=== PATIENT | male | born 1995 | race African-American/Black ===

== ENCOUNTER 2016-11-25 06:14 | Day surgery (SDC) | payer MEDICARE, OTHER ==
[2016-11-20 18:37] VITALS: BMI 24.4
[~2016-11-25 06:14] MED LIST: LIDOCAINE 1%/EPI 1:100000 (50 ML MULTI DOSE VIAL) INF ONE; ceFAZolin SODIUM 1 GM VIAL IVPB ONE
[2016-11-25] MEDS ORDERED: BACITRACIN 30 GM TUBE TOPICAL OINTMENT ONE (07:19)
[2016-11-25] MEDS ORDERED: LIDOCAINE 1%/EPI 1:100000 (50 ML MULTI DOSE VIAL) ONE (07:19)
[2016-11-25] MEDS ORDERED: ceFAZolin SODIUM 1 GM VIAL ONE (07:22)
[2016-11-25] MEDS ORDERED: KETOROLAC TROMETHAMINE 30 MG/1 ML VIAL ONE (07:22)
[2016-11-25] MEDS ORDERED: SODIUM CHLORIDE 0.9% P/F 10 ML VIAL IJ ONE (07:22)
[2016-11-25] MEDS ORDERED: DEXAMETHASONE SOD PHOSPHATE 4 MG/1 ML VIAL ONE (07:22)
[2016-11-25] MEDS ORDERED: MIDAZOLAM HCL 2 MG/2 ML SINGLE DOSE VIAL ONE (07:23)
[2016-11-25] MEDS ORDERED: PROPOFOL 20 ML ONE ×2 (07:23)
[2016-11-25] MEDS ORDERED: ePHEDrine SULFATE 50 MG/1 ML AMPULE ONE (07:31)
[2016-11-25] MEDS ORDERED: SEVOFLURANE 250 ML BTL ONE (07:51)
--- NOTE | 2016-11-25 08:08 | HP ---
History & Physical Update - History History: Change (see notes) (Recurrent/newly formed sebaceous cysts of the anterior/sternal chest wall) - Physical Physical: No Change - Assessment Assessment: No Change - Plan Plan: No Change
[2016-11-25] MEDS ORDERED: ceFAZolin SODIUM 1 GM VIAL IVPB ONE (08:21)
[2016-11-25] MEDS ORDERED: BUPIVACAINE HCL/PF 0.5% (5MG/ML) 10 ML VIAL IJ ONE (08:32)
[2016-11-25] MEDS ORDERED: oxyCODONE HCL 5 MG TABLET PO PRN (09:18)
[2016-11-25] MEDS ORDERED: ONDANSETRON 4 MG/2 ML VIAL IVPUSH PRN (09:18)
[2016-11-25] MEDS ORDERED: LACTATED RINGERS SOLUTION 1,000 ML IV SCH (09:30)
[2016-11-25 10:13] VITALS: TEMP 98.6
[2016-11-25 10:53] VITALS: BP 110/67; PULSE 72
--- NOTE | 2016-11-26 11:17 | OP ---
DATE OF OPERATION: 11/25/2016 PROCEDURE: Excision of anterior chest wall sebaceous cysts (3). PREOPERATIVE DIAGNOSIS: Anterior chest wall sebaceous cysts (3). POSTOPERATIVE DIAGNOSIS: Anterior chest wall sebaceous cysts (3). SURGEON: Nnamdi Dubose MD ANESTHESIA: General by laryngeal mask airway. FINDINGS ON PROCEDURE: This is a 21-year-old male who presents with recurrent sebaceous cysts of the anterior chest wall at the distal half of the sternum. Patient had previous excision of multiple sebaceous cysts at the same area. On physical examination, patient had three 1-cm sebaceous cysts at the distal half of the sternum up to the area below the subxiphoid process. The patient was advised removal of the cysts, and consent was obtained from the father after discussing the risks, benefits, and alternatives of the procedure. DESCRIPTION OF PROCEDURE: Patient was brought to the operating room and placed in supine position. General anesthesia by laryngeal mask airway was administered. The operative site was prepped and draped in the usual sterile fashion. Using 0.5% Marcaine local anesthesia was administered to the proposed incision sites for postoperative analgesia. The upper most cyst was addressed first by making a 1-cm elliptical incision over the cyst using scalpel blade No. 15. Further dissection using iris scissors was done until the cyst together with the ellipse of skin was completely excised. The wound was undermined about 0.5 cm on each side and closed with interrupted Biosyn 4-0 sutures for the dermis and skin apposition with Steri-Strips. The other 2 cysts were also excised in the same manner. The wounds were covered with sterile dressing. The patient was successfully extubated and transferred to the post-anesthesia care unit in satisfactory condition. ESTIMATED BLOOD LOSS: About 1 mL. WOUND CLASS: Clean. The patient received 1 g of Ancef prior to the start of the procedure. Jose Luis [id number]
--- NOTE | 2016-11-26 13:30 | PATH ---
Surgical Pathology Report Patient Name: JULIA JENKINS [facility]. Rec. #: [id number] /Age/Gender: 1995 (Age: 21) / M Account: [id number] Location: U SURGICAL Taken: 11/25/2016 Received: 11/25/2016 Reported: 11/26/2016 Physicians: Nnamdi Dubose M.D. Specimen(s) Received SEBACEOUS CYST ANTERIOR CHEST WALL Clinical History Sebaceous cyst anterior chest wall Final Diagnosis SEBACEOUS CYSTS, ANTERIOR CHEST WALL, EXCISION: EPIDERMAL INCLUSION CYST x3. Electronically Signed Yang Dotson M.D. Gross Description Received in formalin, labeled "sebaceous cysts anterior chest wall" are 3 palmer, intact cysts ranging from 0.4-0.7 cm in greatest dimension. Each cyst is partially surfaced by palmer, unremarkable skin. The cyst lumens containing palmer sebaceous material. A open claims representative section of each cyst is submitted in one cassette. 11/25/201611/25/2016
== END 2016-11-25 10:54 | disposition home or self-care (01) ==
LOC: JASU-SURG 06:14
PROVIDERS: ATTEND Surgery
PROC: 0HB5XZZ Excision of Chest Skin, External Approach (ICD-10-PCS; principal; 2016-11-25 08:00)
DX: L72.3 Sebaceous cyst (principal)
CPT/HCPCS: 88304-TC; 94760

== ENCOUNTER 2018-10-21 10:38 | Emergency (ER) | payer MEDICARE, OTHER ==
[2018-10-21 10:48] VITALS: BP 112/63; PULSE 75; TEMP 98.3; BMI 20.5
--- NOTE | 2018-10-21 10:48 | PDOC ---
History of Present Illness - General Chief Complaint: Hematuria Stated Complaint: ABD PAIN Time Seen by Provider: 10/21/18 10:47 - History of Present Illness Initial Comments: 10/21/18 11:00 Mr. Ramsey is a 23 yo male w/ pmh of asthma, igov-obzrm-vicvnay disease, lowe's syndrome, scoliosis, chronic renal disease, CKD, who presents for evaluation of abdominal pain and hematuria. Mother reports he recently had unknown urinary procedure with Dr. Genevieve Abarca. Patient was evaluated by Dr. Ivy yesterday who requested CBC and CT abd/pelvis for evaluation of continued bleeding following procedure as well as abdominal pain. Mother reports she presented given Mello's continued generalized pain. Past History - Past Medical History Allergies/Adverse Reactions: Allergies Allergy/AdvReac Type Severity Reaction Status Date / Time amoxicillin [Amoxicillin] Allergy Intermediate Hives Verified 11/28/12 16:10 No Known Drug Allergies Allergy Verified 10/21/18 10:44 Home Medications: Ambulatory Orders Risperidone 1 mg PO DAILY 10/21/18 - Immunization History Immunization Up to Date: Yes - Suicide/Smoking/Psychosocial Hx Smoking Status: No Smoking History: Never smoked Have you smoked in the past 12 months: No Number of Cigarettes Smoked Daily: 0 Hx Alcohol Use: No Drug/Substance Use Hx: No Substance Use Type: None Review of Systems - Review of Systems Comments:: 10/21/18 11:04 Unable to obtain further *Physical Exam - Physical Exam Comments: 10/21/18 11:04 GENERAL: Awake, alert, and fully oriented, in no acute distress HEAD: No signs of trauma, normocephalic, atraumatic EYES: PERRLA, EOMI, sclera anicteric, conjunctiva clear ENT: Auricles normal inspection, hearing grossly normal, nares patent, oropharynx clear without exudates. Moist mucosa NECK: Normal ROM, supple, no lymphadenopathy, JVD, or masses LUNGS: No distress, speaks full sentences, clear to auscultation bilaterally HEART: Regular rate and rhythm, normal S1 and S2, no murmurs, rubs or gallops, peripheral pulses normal and equal bilaterally. ABDOMEN: +Epigastric TTP. Soft, normoactive bowel sounds. No guarding, no rebound. No masses EXTREMITIES: Normal inspection, Normal range of motion, no edema. No clubbing or cyanosis. NEUROLOGICAL: Cranial nerves II through XII grossly intact. Normal speech, no focal sensorimotor deficits SKIN: Warm, Dry, normal turgor, no rashes or lesions noted. UROLOGICAL: No testicular TTP, no deformity, no abnormal findings. ED Treatment Course - LABORATORY CBC & Chemistry Diagram: 10/21/18 11:49 10/21/18 11:49 Medical Decision Making - Medical Decision Making 10/21/18 11:19 Mr. Ramsey is a 23 yo male w/ pmh as described who presents for evaluation of hematuria with abdominal pain. Discussed patient with Urologist who reports patient was seen October 01 for cystoscopy with prostate resection; catheter removed oct 04. Blood expected in urine for 1-2 months following and urologist will evaluate in office in 1 week assuming no additional clinical findings. 10/21/18 14:01 Patient evaluated with labs as below as well as CT abdomen without acute findings (Non-obstructing kidney stones only). Discussed patient with GI who believes patient requires urology follow-up as directed above only without other intervention. No concern for acute process at this time. Discharging to home. Laboratory Results - last 24 hr 10/21/18 10/21/18 10/21/18 11:49 11:49 12:51 WBC 3.1 L RBC 4.16 Hgb 10.0 L Hct 30.5 L D MCV 73.3 L MCH 24.1 L MCHC 32.8 RDW 18.4 H Plt Count 158 MPV 8.9 Absolute Neuts (auto) 1.9 Neutrophils % 59.6 D Lymphocytes % 30.6 D Monocytes % 7.3 Eosinophils % 1.7 Basophils % 0.8 Nucleated RBC % 0 Sodium 139 Potassium 3.5 Chloride 104 Carbon Dioxide 25 Anion Gap 9 BUN 20 H Creatinine 1.6 H Creat Clearance w eGFR 53.83 Random Glucose 88 Calcium 9.4 Total Bilirubin 0.4 AST 43 H ALT 29 Alkaline Phosphatase 166 H Total Protein 8.3 H Albumin 4.4 Urine Color [place] Urine Appearance Turbid Urine pH 8.5 H D Ur Specific [place] 1.020 Urine Protein 3+ H Urine Glucose (UA) Negative Urine Ketones Negative Urine Blood 3+ H Urine Nitrite Negative Urine Bilirubin Negative Urine Urobilinogen 0.2 Ur Leukocyte Esterase Negative *DC/Admit/Observation/Transfer Diagnosis at time of Disposition: Hematuria Qualifiers: Hematuria type: unspecified type Qualified Code(s): R31.9 - Hematuria, unspecified - Discharge Dispostion Disposition: HOME - Referrals Referrals: Safia Isabel MD [Staff Physician] - - Patient Instructions Printed Discharge Instructions: DI for Hematuria Additional Instructions: Mello was evaluated today in the ER for his blood in urine. We evaluated him with labs as well as urine analysis and abdominal CT. No concerning findings were found at this time. He should follow-up with his urologist next week as discussed. 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 Return to ER if any fever, chills, change in urination, or other concerning symptoms. - Post Discharge Activity
--- NOTE | 2018-10-21 11:07 | PDOC ---
Attending Attestation - Resident Resident Name: Eliecer Galvez - ED Attending Attestation I have performed the following: I have examined & evaluated the patient, The case was reviewed & discussed with the resident, I agree w/resident's findings & plan, Exceptions are as noted - HPI HPI: 10/21/18 14:02 23 yo M who presents to the ER with mother and father due to hematuria Pt has a h/o Lowe's syndrome, h/o multiple abdominal hernia repairs, h/o ruptured appendicitis Pt s/p cystoscopy on 10/01 for urinary retention Since that time, he has had hematuria He had complained about abdominal pain since his surgery Was seen by Dr Hidalgo yesterday and mother was told to come to the ER Pt awoke this morning and was noted to have abdominal pain Pt has not been vomiting No fevers or chills 10/21/18 14:28 - Physicial Exam PE: 10/21/18 14:32 On examination: Pleasant patient Awake and alert Answers my questions RRR CTA Abd is not distended, not tender to palpation No masses felt No guarding No rebound - Medical Decision Making 10/21/18 14:02 Laboratory Tests 10/21/18 10/21/18 10/21/18 11:49 11:49 12:51 WBC 3.1 L Hgb 10.0 L Hct 30.5 L D Plt Count 158 BUN 20 H Creatinine 1.6 H Urine Blood 3+ H Urine Nitrite Negative Ur Leukocyte Esterase Negative Pt able to void in the ER 10/21/18 14:32 CT demonstrates - no acute pathology call placed to dr hidalgo - he states patient can be discharged Call placed to dr roca - pt can be see next week I have discussed with mother the importance of following up in 1 week monitor for abdominal distention, inability to void This should prompt a return visit to the ER Monitor for fevers or chills
[2018-10-21 11:59] LABS: BASO % 0.8 % (0-2.0); EOS % 1.7 % (0-4.5); HEMATOCRIT 30.5 % (35.4-49); LYMPH % 30.6 % (8-40); MCH 24.1 pg (25.7-33.7); MCHC 32.8 g/dl (32.0-35.9); MEAN CELL VOLUME 73.3 fl (80-96); MEAN PLT VOLUME 8.9 fl (7.5-11.1); MONO % 7.3 % (3.8-10.2); NEUT % 59.6 % (42.8-82.8); PLATELET COUNT 158 K/MM3 (134-434); RBC 4.16 M/mm3 (4.00-5.60); RDW 18.4 % (11.9-15.9); WHITE BLOOD COUNT 3.1 K/mm3 (4.0-10.0)
[2018-10-21 12:32] LABS: ALBUMIN 4.4 g/dl (3.4-5.0); ALK PHOS 166 U/L (45-117); ANION GAP 9 MMOL/L (8-16); BILIRUBIN,TOTAL 0.4 mg/dL (0.2-1); BLOOD UREA NITROGEN 20 mg/dL (7-18); CALCIUM 9.4 mg/dL (8.5-10.1); CHLORIDE 104 mmol/L (98-107); CO2 25 mmol/L (21-32); CREATININE 1.6 mg/dL (0.55-1.3); GLUCOSE,RANDOM 88 mg/dL (74-106); POTASSIUM 3.5 mmol/L (3.5-5.1); SGOT/AST 43 U/L (15-37); SGPT/ALT 29 U/L (13-61); SODIUM 139 mmol/L (136-145); TOT PROT 8.3 g/dl (6.4-8.2)
[2018-10-21 13:02] LABS: PH,URINE 8.5 (5.0-8.0); URINE APPEARANCE Turbid; URINE BILIRUBIN Negative (<2.0 mg/dL); URINE COLOR Pink; URINE GLUCOSE (UA) Negative (NEGATIVE); URINE KETONE Negative (NEGATIVE); URINE LEUK ESTERASE Negative (NEGATIVE); URINE NITRITE Negative (NEGATIVE); URINE PROTEIN 3+ (NEGATIVE); URINE UROBILINOGEN 0.2 mg/dL (0.2-1.0)
== END 2018-10-21 14:41 | disposition home or self-care (01) ==
LOC: JER 10:38
DX: R31.9 Hematuria, unspecified (principal); J45.909 Unspecified asthma, uncomplicated; M91.10 Juvenile osteochondrosis of head of femur [Legg-Calve-Perthes], unspecified leg; E72.03 Lowe's syndrome; M41.9 Scoliosis, unspecified; N18.9 Chronic kidney disease, unspecified
CPT/HCPCS: 36415; 74176-TC; 80053; 81003; 81015; 85025; 87086; 99281-25

== ENCOUNTER 2018-11-04 16:04 | Emergency (ER) | payer MEDICARE, OTHER ==
[2018-11-04 16:19] VITALS: BMI 27.5
--- NOTE | 2018-11-04 16:23 | PDOC ---
Rapid Medical Evaluation Chief Complaint: Hematuria Time Seen by Provider: 11/04/18 16:19 Medical Evaluation: Allergies Allergy/AdvReac Type Severity Reaction Status Date / Time amoxicillin [Amoxicillin] Allergy Intermediate Hives Verified 11/28/12 16:10 No Known Drug Allergies Allergy Verified 10/21/18 10:44 Vital Signs Temp Pulse Resp BP Pulse Ox 98.7 F 98 H 16 94/59 L 97 11/04/18 16:14 11/04/18 16:14 11/04/18 16:14 11/04/18 16:14 11/04/18 16:14 11/04/18 16:20 I have performed a brief in-person evaluation of this patient. The patient presents with a chief complaint of: h/o lowes syndrome, spleenomegaly and urinary retention sent in by PCP Dr. Abarca for admission for gross hematuria and refusing gambino placement in office today Pertinent physical exam findings: A&O x 3 I have ordered the following: CBC, CMP, PT/PTT/ T&S. IV insert The patient will proceed to the ED for further evaluation. 11/04/18 16:20 Discharge Disposition - Diagnosis Hematuria Qualifiers: Hematuria type: unspecified type Qualified Code(s): R31.9 - Hematuria, unspecified - Discharge Dispostion Condition at time of disposition: Stable - Referrals Referrals: Yunier Abarca MD [Primary Care Provider] - - Patient Instructions - Post Discharge Activity
--- NOTE | 2018-11-04 16:50 | PDOC ---
*Physical Exam - Vital Signs Last Vital Signs Temp Pulse Resp BP Pulse Ox 98.7 F 98 H 16 94/59 L 97 11/04/18 16:14 11/04/18 16:14 11/04/18 16:14 11/04/18 16:14 11/04/18 16:14 Medical Decision Making - Medical Decision Making 11/04/18 16:49 The patient was seen and evaluated in conjunction with QUINCY Stout under my direct supervision, ancillary studies were reviewed. I independently evaluated the patient and I agree with the plan as outlined by QUINCY Stout . sent by dr. chioma roca for evaluation of hematuria. recent admissio for hematuria requiring transfusion nieves ck labs, hct anticipate admissio nfor further management/cystoscopy *DC/Admit/Observation/Transfer Diagnosis at time of Disposition: Hematuria Qualifiers: Hematuria type: unspecified type Qualified Code(s): R31.9 - Hematuria, unspecified - Discharge Dispostion Condition at time of disposition: Stable - Referrals Referrals: Yunier Roca MD [Primary Care Provider] - - Patient Instructions - Post Discharge Activity
--- NOTE | 2018-11-04 16:53 | PDOC ---
History of Present Illness - General Chief Complaint: Hematuria Stated Complaint: SENT BY PCP Time Seen by Provider: 11/04/18 16:22 History Source: Family Exam Limitations: No Limitations Past History - Past Medical History Allergies/Adverse Reactions: Allergies Allergy/AdvReac Type Severity Reaction Status Date / Time amoxicillin [Amoxicillin] Allergy Intermediate Hives Verified 11/28/12 16:10 No Known Drug Allergies Allergy Verified 10/21/18 10:44 Home Medications: Ambulatory Orders Risperidone 1 mg PO DAILY 10/21/18 Asthma: Yes COPD: No - Immunization History Immunization Up to Date: Yes - Suicide/Smoking/Psychosocial Hx Smoking Status: No Smoking History: Never smoked Have you smoked in the past 12 months: No Number of Cigarettes Smoked Daily: 0 Information on smoking cessation initiated: No Hx Alcohol Use: No Drug/Substance Use Hx: No Substance Use Type: None *Physical Exam - Vital Signs Last Vital Signs Temp Pulse Resp BP Pulse Ox 98.7 F 98 H 16 94/59 L 97 11/04/18 16:14 11/04/18 16:14 11/04/18 16:14 11/04/18 16:14 11/04/18 16:14 - Physical Exam General Appearance: No: Apparent Distress Respiratory/Chest: positive: Lungs Clear Cardiovascular: positive: Regular Rhythm, Regular Rate Gastrointestinal/Abdominal: positive: Soft. negative: Tender Integumentary: positive: Normal Color Neurologic: positive: Alert Moderate Sedation - Procedure Monitoring Vital Signs: Procedure Monitoring Vital Signs Temperature 98.7 F 11/04/18 16:14 Pulse Rate 98 H 11/04/18 16:14 Respiratory Rate 16 11/04/18 16:14 Blood Pressure 94/59 L 11/04/18 16:14 O2 Sat by Pulse Oximetry (%) 97 11/04/18 16:14 ED Treatment Course - LABORATORY CBC & Chemistry Diagram: 11/04/18 17:10 11/04/18 17:10 Medical Decision Making - Medical Decision Making 23 y/o M hx of Lowe's syndrome, multiple abd hernia repairs, ruptured appendicitis presents for hematuria since Oct 01. Patient mentions having cystoscopy done at that time, then discharged. He was seen here on 10/21, again discharged. Mentions was just recently discharged from [facility] ( discharged 10/30, was there for 1 week); states had another cystoscopy done and was told had benign biopsy. He also received blood transfusion (got 2 units). Patient was seeing his urologist, Dr. Abarca, today, and attempted gambino placement, but patient refused. Patient was sent for admission for likely repeat cystoscopy. Patient is able to void. Plan: Labs Will defer gambino placement given patient able to void 11/04/18 16:52 Labs show stable Hgb/Hct from prior K is 3.3 -> will replete with PO KCl Mg checked and not low Spoke to urologist, Dr. Abarca - explained patient voiding and Hgb/Hct stable States that patient can be discharged with f/u with him on 11/0811/04/18 18:39 *DC/Admit/Observation/Transfer Diagnosis at time of Disposition: Hematuria Qualifiers: Hematuria type: unspecified type Qualified Code(s): R31.9 - Hematuria, unspecified - Discharge Dispostion Condition at time of disposition: Stable Decision to Admit order: No - Referrals Referrals: Yunier Abarca MD [Primary Care Provider] - 11/08/18 - Patient Instructions Printed Discharge Instructions: DI for Hematuria Additional Instructions: Thank you for choosing [facility]. It was a pleasure taking care of you. Your labs were unremarkable other than slightly low potassium, which was repleted Please follow-up with your urologist, Dr. Abarca on 11/08/18 Return to the Emergency Department if your symptoms worsen or persist, unable to void, severe abdominal pain, vomiting, fever or other concerning symptoms. - Post Discharge Activity
[2018-11-04 17:24] LABS: BASO % 0.9 % (0-2.0); EOS % 2.6 % (0-4.5); HEMATOCRIT 31.1 % (35.4-49); HEMOGLOBIN 10.6 GM/dL (11.7-16.9); LYMPH % 32.1 % (8-40); MCH 26.4 pg (25.7-33.7); MEAN CELL VOLUME 77.5 fl (80-96); MEAN PLT VOLUME 7.9 fl (7.5-11.1); MONO % 7.5 % (3.8-10.2); NEUT % 56.9 % (42.8-82.8); PLATELET COUNT 258 K/MM3 (134-434); RBC 4.02 M/mm3 (4.00-5.60); RDW 20.3 % (11.9-15.9)
[2018-11-04 17:37] LABS: INR 0.97 (0.83-1.09); PROTHROMBIN TIME (PATIENT) 11.5 SEC (9.7-13.0)
[2018-11-04 17:39] LABS: ACTIVATED PTT 26.4 SECONDS (25.2-36.5)
[2018-11-04 17:42] LABS: ALK PHOS 139 U/L (45-117); ANION GAP 7 MMOL/L (8-16); BILIRUBIN,TOTAL 0.5 mg/dL (0.2-1); BLOOD UREA NITROGEN 15 mg/dL (7-18); CALCIUM 8.7 mg/dL (8.5-10.1); CHLORIDE 100 mmol/L (98-107); CO2 28 mmol/L (21-32); CREATININE 1.6 mg/dL (0.55-1.3); GLUCOSE,RANDOM 89 mg/dL (74-106); POTASSIUM 3.3 mmol/L (3.5-5.1); SGOT/AST 39 U/L (15-37); SGPT/ALT 22 U/L (13-61); SODIUM 135 mmol/L (136-145); TOT PROT 8.1 g/dl (6.4-8.2)
[2018-11-04] MEDS ORDERED: POTASSIUM CHLORIDE ORAL LIQUID 20 MEQ/15 ML PO ONE (17:57)
[2018-11-04] MEDS ORDERED: POTASSIUM CHLORIDE ORAL LIQUID 20 MEQ/15 ML ONE (18:33)
[2018-11-04 19:02] VITALS: BP 124/64; PULSE 91; TEMP 97.6
== END 2018-11-04 19:06 | disposition home or self-care (01) ==
LOC: JER 16:04
DX: R31.9 Hematuria, unspecified (principal); E87.6 Hypokalemia
CPT/HCPCS: 36415; 80053; 83735; 85025; 85610; 85730; 86850; 86900; 86901; 99283-25

== ENCOUNTER 2024-05-09 04:23 | Day surgery (SDC) | payer OTHER ==
[2024-05-05 17:01] VITALS: BMI 21.2
[2024-05-09] MEDS ORDERED: MIDAZOLAM HCL 2 MG/2 ML SINGLE DOSE VIAL ONE ×2 (15:14→15:17)
[2024-05-09 15:59] VITALS: RESP 16
[2024-05-09 16:47] VITALS: BP 106/64; PULSE 58; TEMP 97.5
== END 2024-05-09 16:55 | disposition home or self-care (01) ==
LOC: JASU-SURG 04:23
PROVIDERS: ATTEND Urology
PROC: 0TF4XZZ Fragmentation in Left Kidney Pelvis, External Approach (ICD-10-PCS; principal; 2024-05-09 15:21)
DX: N20.0 Calculus of kidney (principal)